=== PATIENT | female | born 1925 | race Caucasian/White ===

== ENCOUNTER 2016-09-18 14:09 | Emergency (ER) | payer MEDICARE, BC ==
--- NOTE | ~2016-09-18 | EKG ---
PATIENT: PIO MATHEW UNIT #: [id number] Ventricular Rate: 95 BPM Atrial Rate: 95 BPM P-R Interval: 162 ms QRS Duration: 68 ms Q-T Interval: 356 ms QTC Calculation(Bezet): 447 ms P [place]: 28 degrees Calculated R [place]: -39 degrees Calculated T [place]: 31 degrees Diagnosis Line: Sinus rhythm with occasional Premature ventricular Diagnosis Line: complexes Diagnosis Line: Left axis deviation Diagnosis Line: Low voltage QRS Diagnosis Line: Cannot rule out Anterior infarct (cited on or Diagnosis Line: before 11-JUL-2010) Diagnosis Line: Abnormal ECG Diagnosis Line: When compared with ECG of 11-JUL-2010 09:21, Diagnosis Line: Premature ventricular complexes are now Present Diagnosis Line: Confirmed by ALBARO WOOD MD ([id number]) on Diagnosis Line: 09/18/2016 3:29:03 PM INTERPRETING MD: ISRAEL JUNG
--- NOTE | ~2016-09-18 | CR72 ---
[facility] A Service of [facility] & [facility] RADIOLOGY TEXT RESULTS PATIENT: PIO MATHEW LOCATION: [facility] : [birth year] UNIT #: [id number] AGE: [address]: Chivo Chavez MD SEX: F ORDER DR: [id number] [facility] [address] [place], [place] [address] [id number] MR#: [id number] Acc #: [id number] NAME: PIO MATHEW. : 1925 SEX: F STUDY DATE/TIME: 09/18/2016 13:31 UNIT: [facility] ROOM: STUDY DESCRIPTION: CR Chest Single View Portable Attending Physician: Chivo Chavez M.D. Ordering Physician: Ed Rinku Ortiz M.D. Primary Care Physician: José Miguel Long M.D. MEDICAL IMAGING REPORT This report is preliminary unless electronic signature is present EXAM Chest portable 09/18/2016 1331 hours CLINICAL HISTORY 89-year-old woman with cough and weakness today. COMPARISON Chest CT 10/30/2012. FINDINGS Portable upright chest demonstrates normal heart size and a mildly tortuous aorta without change. The lungs are clear and there is no effusion or pneumothorax. IMPRESSION No acute cardiopulmonary findings. Heart size within normal limits. Stable tortuous aorta. The lungs are clear. Dictated by... Bere Macias M.D. THIS IS AN ELECTRONICALLY VERIFIED REPORT Bere Macias M.D. at 09/19/2016 9:25 AM DENISE/connie TD: 09/18/2016 15:55 JOB #: [id number] MEDICAL IMAGING REPORT COPY
[2016-09-18 13:54] LABS: INFLUENZA A POS (NEG); INFLUENZA B NEG (NEG)
[~2016-09-18 14:09] MED LIST: ALEVE; ASPIRIN PO; BENADRYL PO; CHONDROITIN; GLUCOSAMINE; LORTAB 10-5001 EACH PO; MEDROL PO; OYSTER CALCIUM500 MG PO
[2016-09-18 14:26] LABS: BASOPHIL% 0.6 % (0-2.5); EOSINOPHIL% 0.1 % (0.0-7.0); HEMATOCRIT 39.2 % (35.0-45.0); HEMOGLOBIN 12.9 gm/dL (12.0-16.0); LYMPHOCYTE# 0.7 X10e3 (1.0-3.5); MEAN CORPUSCULAR HEMOGLOBIN 29.2 PG (28-34); MEAN CORPUSCULAR HGB CONC 32.8 g/dL (30-36); MEAN PLATELET VOLUME 7.8 FL (6.5-11.5); MONOCYTE# 0.5 X10e3 (0-1.0); MONOCYTE% 16.1 % (3.0-12.0); NEUTROPHIL# 1.9 X10e3 (1.5-7.1); NEUTROPHIL% 61.2 % (40-75); PLATELET COUNT 184 X10e3 (140-420); RED CELL DISTRIBUTION WIDTH 14.2 % (11.0-15.5); WHITE BLOOD COUNT 3.1 X10e3 (4.0-10.5)
[2016-09-18 14:28] LABS: DIFF IND NO
[2016-09-18 14:53] LABS: ALBUMIN SERUM 3.9 g/dL (3.5-5.0); BILIRUBIN, DIRECT 0.3 mg/dL (0.0-0.2); BILIRUBIN,INDIRECT 0.8 mg/dL (0.0-0.9); BILIRUBIN,TOTAL 1.1 mg/dL (0.2-2.0); BUN/CREATININE RATIO 24.54; CALCIUM SERUM 8.7 mg/dL (8.4-10.2); CREATININE SERUM 1.1 mg/dL (0.6-1.4); GLOM FILT RATE Estimated 49.8 mL/min (>60); POTASSIUM 4.4 mmol/L (3.5-5.1); PROTEIN TOTAL SERUM 6.5 g/dL (6.0-8.3)
[2016-09-18 15:13] LABS: URINE SOURCE CLEAN CATCH
[2016-09-18 15:42] LABS: URINE APPEARANCE CLOUDY; URINE BLOOD NEG (NEG); URINE COLOR DK YELLOW; URINE GLUCOSE NEG (NEG); URINE KETONE 1+ (NEG); URINE LEUKOCYTE ESTERASE TRACE (NEG); URINE NITRATE POS (NEG); URINE PROTEIN NEG (NEG); URINE SPECIFIC GRAVITY 1.024 (1.003-1.035)
[2016-09-18 15:45] LABS: CULTURE INDICATED? YES; U HYALINE CASTS AUWI 0-2 /[LPF]; URBCS1 AUWI 0-2 /[HPF] (0-2); URINE BACTERIA AUWI 4+ (NEGATIVE); URINE SQUAMOUS EPITHELIAL CELL NONE SEEN /[HPF]; UWBCS1 AUWI 0-2 (0-5)
[2016-09-18 15:47] LABS: URINE BILIRUBIN NEG (NEG)
== END 2016-09-18 17:30 | disposition home or self-care (01) ==
LOC: CED 14:09
PROVIDERS: Emergency Medicine
DX: J10.1 Influenza due to other identified influenza virus with other respiratory manifestations (principal); N39.0 Urinary tract infection, site not specified; Z98.890 Other specified postprocedural states
CPT/HCPCS: 36415; 51701; 71010; 80048; 80076; 81003; 85025; 87086; 87088; 87186; 87804; 93005; 96361; 96374; 99284; J2405